=== PATIENT | male | born 1955 | race Caucasian/White ===

== ENCOUNTER 2016-07-07 07:47 | Emergency (ER) | payer SELFPAY ==
[~2016-07-07] VITALS: Ht 182.9 cm; Wt 64.2 kg
== END 2016-07-07 13:45 | disposition short-term general hospital (02) ==
LOC: ER 07:47
DX: R04.2 Hemoptysis (principal); R22.1 Localized swelling, mass and lump, neck; D72.829 Elevated white blood cell count, unspecified; E87.1 Hypo-osmolality and hyponatremia; F17.210 Nicotine dependence, cigarettes, uncomplicated; Z90.49 Acquired absence of other specified parts of digestive tract
CPT/HCPCS: J2543